=== PATIENT | male | born 1960 | race American Indian/Alaskan Native ===

== ENCOUNTER 2017-03-29 14:23 | Outpatient (CLI) | payer MEDICARE, MEDICAID ==
--- NOTE | 2017-03-29 14:56 | XRay Report ---
CHEST TWO VIEWS: 03/29/17 14:23:00 CLINICAL: Shortness of breath. COMPARISON: None FINDINGS: Patchy right hilar opacity and right paramedian suprahilar opacities with a relatively straight lateral margin. There is slight superior retraction of the right hilum and elevation of the right hemidiaphragm. At least a portion of these changes are consistent with benign post radiation scar. The lungs are otherwise clear. No pleural effusion. Normal heart and pulmonary vessels. A right [id number]-Aked tip is in the distal SVC at the cavoatrial junction.The bones and soft tissues are normal. IMPRESSION: Probable benign right upper lobe scar.However, without a comparison chest x-ray, a superimposed right upper lobe tumor or pneumonia cannot be excluded.
== END 2017-03-29 14:24 | disposition home or self-care (01) ==
LOC: SPVIMAG 14:23
PROVIDERS: ATTEND Internal Medicine Hematology & Oncology
DX: C34.91 Malignant neoplasm of unspecified part of right bronchus or lung (principal); B20 Human immunodeficiency virus [HIV] disease; J98.6 Disorders of diaphragm
CPT/HCPCS: 71020